=== PATIENT | male | born 1975 | race African-American/Black ===

== ENCOUNTER 2022-02-23 04:13 | Day surgery (SDC) | payer OTHER ==
[2022-02-20 15:24] VITALS: BMI 28.8
[2022-02-23] MEDS ORDERED: KETOROLAC TROMETHAMINE 30 MG/1 ML VIAL ONE (08:35)
[2022-02-23] MEDS ORDERED: ONDANSETRON 4 MG/2 ML VIAL ONE (08:35)
[2022-02-23] MEDS ORDERED: PROPOFOL 20 ML ONE (08:35)
[2022-02-23 09:32] VITALS: RESP 20; TEMP 97.2
[2022-02-23 10:22] VITALS: BP 129/82; PULSE 72
[2022-02-23] MEDS ORDERED: ACETAMINOPHEN 325 MG TABLET (FP) PO PRN (15:29)
[2022-02-23] MEDS ORDERED: ONDANSETRON 4 MG/2 ML VIAL IVPUSH PRN (15:29)
[2022-02-23] MEDS ORDERED: LACTATED RINGERS SOLUTION 1,000 ML IV SCH (15:30)
== END 2022-02-23 11:41 | disposition home or self-care (01) ==
LOC: JASU-SURG 04:13
PROVIDERS: ATTEND Urology
PROC: 0TF3XZZ Fragmentation in Right Kidney Pelvis, External Approach (ICD-10-PCS; principal; 2022-02-23 09:00)
DX: N20.0 Calculus of kidney (principal)